=== PATIENT | male | born 1985 | race Caucasian/White ===

== ENCOUNTER 2019-12-08 16:20 | Emergency (ER) | payer BC ==
[2019-12-08 16:24] VITALS: BP 135/87; PULSE 70; RESP 18; TEMP 97.9
--- NOTE | 2019-12-08 16:52 | ED ---
General Adult HPI - General Chief complaint: Upper Respiratory Infection Stated complaint: chest heaviness, cough Time Seen by Provider: 12/08/19 16:28 Source: patient Mode of arrival: ambulatory Limitations: no limitations - History of Present Illness Initial comments: Patient presents to the ED complaining of having a cough and sinus congestion for the past 1.5 weeks or so. Patient states that his was diagnosed with influenza B earlier this month, but he states that he was never tested for it. Patient states that he did have a low-grade fever at the onset of his symptoms, but he states that he no longer has a fever. Patient also states that he has had a headache and diffuse chest heaviness for the past few days. Patient denies recent travel abroad. Patient denies trauma or injury, sudden onset of headache, LOC, neck pain or stiffness, fever or chills, numbness/weakness/neuro deficit, visual changes, speech difficulty, sore throat, neck/arm/jaw/back pain, pleuritic pain, hemoptysis, dyspnea, palpitations, dizziness, abdominal pain, nausea/vomiting/diarrhea, urinary symptoms, leg or calf swelling or pain, or any other symptoms or complaints. Patient states that he recently completed a course of azithromycin, as well as a course of oral steroids, without any improvement. - Related Data Home Medications Medication Instructions Recorded Confirmed Azithromycin [Zithromax Z-pack] See Taper PO DIRECTED 12/08/19 12/08/19 Multivitamins, Thera [Multivitamin 1 tab PO DAILY 12/08/19 12/08/19 (formulary)] Tylenol Cold & Sinus 1 tab PO Q4-6H PRN 12/08/19 12/08/19 methylPREDNISolone [Medrol Dose See Taper PO DIRECTED 12/08/19 12/08/19 Pack] Allergies Allergy/AdvReac Type Severity Reaction Status Date / Time ibuprofen Allergy Itching Verified 12/08/19 16:49 Review of Systems ROS Statement: Those systems with pertinent positive or pertinent negative responses have been documented in the HPI. ROS Other: All systems not noted in ROS Statement are negative. Past Medical History Past Medical History: No Reported History History of Any Multi-Drug Resistant Organisms: None Reported Past Surgical History: No Surgical Hx Reported Past Psychological History: No Psychological Hx Reported Smoking Status: Current every day smoker Past Alcohol Use History: None Reported Past Drug Use History: None Reported General Exam Limitations: no limitations General appearance: alert, in no apparent distress Head exam: Present: atraumatic, normocephalic Eye exam: Present: normal appearance, PERRL, EOMI ENT exam: Present: normal oropharynx, mucous membranes moist Neck exam: Present: other (Trachea is in midline). Absent: tenderness, meningismus Respiratory exam: Present: normal lung sounds bilaterally. Absent: respiratory distress, wheezes, rales, rhonchi, stridor Cardiovascular Exam: Present: regular rate, normal rhythm, normal heart sounds, other (Normal radial pulses bilaterally) GI/Abdominal exam: Present: soft. Absent: distended, tenderness Extremities exam: Present: other (Negative Sincere's sign bilaterally). Absent: tenderness, pedal edema, calf tenderness Neurological exam: Present: alert, oriented X3, CN II-XII intact. Absent: motor sensory deficit Psychiatric exam: Present: normal affect, normal mood Skin exam: Present: warm, dry, intact, normal color Course Vital Signs 12/08/19 16:22 Temperature 97.9 F Pulse Rate 70 Respiratory 18 Rate Blood Pressure 135/87 O2 Sat by Pulse 99 Oximetry Medical Decision Making - Medical Decision Making Patient's influenza B test is positive. Patient's chest x-ray is unremarkable. Patient is alert and breathing comfortably with clear breath sounds bilaterally and a normal room air oxygen saturation. Patient's vital signs are reassuring. Patient was counseled about influenza B, and he was instructed to follow up closely with his primary care provider. He was clearly explained return and follow-up instructions. He feels comfortable with this plan. - Lab Data Lab Results 12/08/19 Range/Units 16:43 Influenza Type A RNA Not Detected (Not Detectd) Influenza Type B (PCR) Detected H (Not Detectd) - Radiology Data Radiology results: image reviewed (Chest x-ray is negative) Disposition Clinical Impression: Influenza B Disposition: HOME SELF-CARE Condition: Stable Instructions (If sedation given, give patient instructions): Influenza (ED) Additional Instructions: Return to the ER immediately should you develop shortness of breath/trouble breathing, chest pain, feeling dizzy or faint, persistent vomiting, or new or worsening symptoms. Follow up closely with your primary care provider. Is patient prescribed a controlled substance at d/c from ED?: No Referrals: Ran Braswell MD [Primary Care Provider] - 1-2 days Time of Disposition: 17:57
--- NOTE | 2019-12-08 17:19 | XR ---
EXAMINATION TYPE: XR chest 2V DATE OF EXAM: 12/08/2019 COMPARISON: NONE HISTORY: Cough TECHNIQUE: FINDINGS: Heart and mediastinum are normal. Lungs are clear. Diaphragm is normal. Bony thorax appears normal. IMPRESSION: Normal chest
== END 2019-12-08 18:12 | disposition home or self-care (01) ==
LOC: EC 16:20
DX: J10.1 Influenza due to other identified influenza virus with other respiratory manifestations (principal); F17.200 Nicotine dependence, unspecified, uncomplicated; Z79.52 Long term (current) use of systemic steroids; Z88.6 Allergy status to analgesic agent
CPT/HCPCS: 71046; 87502; 99283